=== PATIENT | female | born 1955 | race Two or more races ===

== ENCOUNTER 2023-07-05 06:00 | Day surgery (SDC) | payer OTHER ==
[~2023-07-05 06:00] MED LIST: CRESTOR20 MG PO; DICY20TA; PEPCID AC20 MG; PROTONIX40 MG PO; VIT D
[2023-07-05] MEDS ORDERED: CEFAZOLIN SODIUM 1,000 MG VIAL ONE (06:54)
[2023-07-05] MEDS ORDERED: CEFAZOLIN SODIUM 1,000 MG VIAL IV SCH (08:15)
== END 2023-07-05 11:40 | disposition home or self-care (01) ==
LOC: CIR.AMB 06:00
PROVIDERS: ATTEND Surgery
DX: K80.20 Calculus of gallbladder without cholecystitis without obstruction (principal)